=== PATIENT | male | born 1990 | race Caucasian/White ===

== ENCOUNTER 2017-08-10 21:03 | Outpatient (CLI) | payer MEDICAID, OTHER | END 2017-08-11 06:45 | disposition home or self-care (01) | LOC: SLEEP 21:03 | PROVIDERS: ATTEND Nurse Practitioner | DX: G47.33 Obstructive sleep apnea (adult) (pediatric) (principal); G47.10 Hypersomnia, unspecified; R06.83 Snoring | CPT/HCPCS: 95810 ==

== ENCOUNTER 2017-10-20 13:08 | Outpatient (RCR) | payer OTHER ==
[2017-10-20 13:39] LABS: SEMEN VOLUME 0.8 ML (1.5-5.0)
== END 2017-11-04 | disposition home or self-care (01) ==
LOC: LAB 13:08
PROVIDERS: ATTEND Nurse Practitioner
DX: Z92.21 Personal history of antineoplastic chemotherapy (principal)
CPT/HCPCS: 89320

== ENCOUNTER 2020-02-22 19:54 | Emergency (ER) | payer OTHER ==
[~2020-02-22] VITALS: Ht 167.7 cm; Wt 83.9 kg
[2020-02-22] MEDS ORDERED: KETAMINE/NaCl 50 MG/5 ML SYRINGE (ED ONLY) ONE (20:01)
[2020-02-22] MEDS ORDERED: HYDROmorphone 2 MG/ML VIAL (DILAUDID) ONE (20:01)
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
[2020-02-22 20:13] LABS: HEMOGLOBIN 14.6 g/dL (13.3-17.7); MEAN PLATELET VOLUME 9.9 fL (9.0-12.2); WHITE BLOOD COUNT 14.3 10^3/uL (4.3-11.0)
[2020-02-22] MEDS ORDERED: NS 100 ML (IVPB) BAG IV ONE (20:15)
[2020-02-22] MEDS ORDERED: IOHEXOL 350 MG/ML 100 ML (OMNIPAQUE 350) VIAL IV ONE (20:15)
[2020-02-22] MEDS ORDERED: HYDROmorphone 2 MG/ML VIAL (DILAUDID) IV ONE ×3 (20:15→22:45)
[2020-02-22] MEDS ORDERED: HOLD METFORMIN - RECEIVED CONTRAST 20 ML VIAL IV SCH (20:15)
[2020-02-22] MEDS ORDERED: KETAMINE/NaCl 50 MG/5 ML SYRINGE (ED ONLY) IV ONE ×2 (20:15→20:30)
[2020-02-22 20:29] LABS: CHLORIDE 105 MMOL/L (98-107); POTASSIUM 3.1 MMOL/L (3.6-5.0); SODIUM 136 MMOL/L (135-145)
[2020-02-22 20:30] LABS: CALCIUM 8.9 MG/DL (8.5-10.1)
[2020-02-22 20:32] LABS: GLUCOSE 105 MG/DL (70-105); TOTAL PROTEIN 6.9 GM/DL (6.4-8.2)
[2020-02-22 20:33] LABS: BILIRUBIN,TOTAL 0.4 MG/DL (0.1-1.0); CARBON DIOXIDE 20 MMOL/L (21-32); PROTHROMBIN TIME PATIENT 13.1 SEC (12.2-14.7)
[2020-02-22 20:35] LABS: ALKALINE PHOSPHATASE 44 U/L (40-136); CREATININE SERUM 1.15 MG/DL (0.60-1.30); GFR ESTIMATED > 60
[2020-02-22 20:37] LABS: BILIRUBIN,DIRECT 0.2 MG/DL (0.0-0.3); BILIRUBIN,INDIRECT 0.2 MG/DL; BUN/CREATININE RATIO 14
[2020-02-22 20:38] LABS: ALANINE AMINOTRANSFERASE 79 U/L (0-55)
--- NOTE | 2020-02-22 21:10 | NUR ---
PT STATES HE TAKES OTC SUPPLEMENTS, TESTOSTERONE, AND A BABY ASA. BABY ASA NOT PRESCRIBED HE STATES, "I GAVE BLOOD ONE TIME AND MY BLOOD WAS SUPER THICK SO NOW I TAKE A BABY ASPIRIN DAILY".
--- NOTE | 2020-02-22 21:11 | NUR ---
ETCO2 35.
--- NOTE | 2020-02-22 21:15 | NUR ---
1L NS STARTED BY EMS COMPLETE AT THIS TIME. NO FURTHER ORDERS FOR IVF PER Yvette HOPE, CARLITOS.
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
[2020-02-22] MEDS ORDERED: HYDROmorphone 2 MG/ML VIAL (DILAUDID) IVP ONE (22:00)
--- NOTE | 2020-02-22 22:05 | NUR ---
[facility] APPLIED OWN HARE TRACTION SPLINT NONE AVAILABLE IN ER.
[2020-02-22 22:12] VITALS: BP 128/87
--- NOTE | 2020-02-22 22:45 | NUR ---
PT FATHER HELGA UPDATED ON PT CONDITION AND TRANSFER ER.
== END 2020-02-22 22:12 | disposition short-term general hospital (02) ==
LOC: EDUNIT# 19:54 → ER 19:55
DX: S72.491A Other fracture of lower end of right femur, initial encounter for closed fracture (principal); R40.2410 Glasgow coma scale score 13-15, unspecified time; Z88.5 Allergy status to narcotic agent; V89.2XXA Person injured in unspecified motor-vehicle accident, traffic, initial encounter
CPT/HCPCS: 70450; 71045; 71260; 72125; 73552; 73590; 74177; 80048; 80076; 85027; 85610; 93041; 94760; 99291; 99292; G0390; G0480; 36415; 80320; 96374; 96375; 96376

== ENCOUNTER 2020-12-16 08:59 | Emergency (ER) | payer OTHER ==
[~2020-12-16] VITALS: Ht 157 cm; Wt 74.8 kg
--- OUTSIDE RECORDS SUMMARY | 2020-12-16 09:04 | XMS REPORT | Clinical Summary ---
Author Author [facility] Organization [facility] Address Unknown Phone Unavailable Care Team Providers Care Grinding Supervisor Name Role Phone Israel Moses MD PCP Silvia Recio MD Unavailable Kendy Solis MD Unavailable Source Comments Some departments are not documenting in the electronic medical record. If you d o not see the information that you expected, contact Release of Information in [facility] Information Management department at [phone] for further assistan ce in locating additional records.[facility] Allergies Not on File Medications Not on file Active Problems Problem Noted Date Closed fracture of unspecified part of femur 009 Social History Date Tobacco Use Types Packs/Day Years Used Never Assessed Sex Assigned at Date Recorded Not on file Last Filed Vital Signs Not on file Plan of Treatment Health Maintenance Due Date Last Done Comments HIV SCREENING 05/15/2006 DTAP/TDAP VACCINES (1 - 05/15/2009 Tdap) HEPATITIS C SCREENING 05/15/2009 PHYSICAL (COMPREHENSIVE) 05/15/2009 EXAM INFLUENZA VACCINE 10/05/2020 Results Not on filefrom Last 3 Months
--- NOTE | 2020-12-16 09:22 | ED Upper Extremity ---
General Chief Complaint: Upper Extremity Stated Complaint: L INDEX FINGER LAC/SMASHED Nursing Triage Note: PT ARRIVES TO ER WITH C/O L INDEX FINGER BEING SMASHED BY A METAL BEAM WHILE AT WORK AROUND 0850 THIS MORNING. PT RATES PAIN 5/10 Source: patient Exam Limitations: no limitations History of Present Illness Date Seen by Provider: Dec 16, 2020 Time Seen by Provider: 09:07 Initial Comments Patient is a 30-year-old male who presents to the emergency department today with a chief complaint of left index finger injury while moving some metal beams at work today. Patient states his finger got caught between the metal beams. Had immediate onset of pain in the finger. Bleeding noted. Small laceration, 1/2 cm noted over the proximal left index finger. Patient has intact range of motion with resistance. States his last tetanus shot was about 2 years ago. Is not a diabetic. Does smoke cigarettes. Is not Covid vaccinated, not interested in receiving the Covid vaccination. Complains of some pain to the tip of the index finger but otherwise it feels "numb". All other review of systems reviewed and negative except as stated. Onset: just prior to arrival Severity: mild Pain/Injury Location: left 2nd finger Method of Injury: direct blow Modifying Factors: Improves With Immobilization; Worse With Movement Allergies and Home Medications Allergies Coded Allergies: codeine (Unverified Allergy, Unknown, 12/16/20) Patient Home Medication List Home Medication List Reviewed: Yes Review of Systems Constitutional: see HPI EENTM: no symptoms reported Respiratory: no symptoms reported Cardiovascular: no symptoms reported Gastrointestinal: no symptoms reported Genitourinary: no symptoms reported Musculoskeletal: other (left index finger pain) Skin: other (laceration) All Other Systems Reviewed Negative Unless Noted: Yes Past Tbulgwk-Nyleco-Nfclma Hx Patient Social History Tobacco Use?: Yes Tobacco type used: Cigarettes Smoking Status: Current Everyday Smoker Substance use?: Yes Substance type: Marijuana Substance frequency: Rarely Alcohol Use?: Yes Alcohol type: Beer, Hard Liquor Alcohol Frequency: Daily Pt feels they are or have been: No Immunizations Up To Date Tetanus Booster (TDap): Less than 5yrs Past Medical History Surgeries: Yes (BMTs) Adenoidectomy, Orthopedic Respiratory: No Cardiac: No Neurological: No Genitourinary: No Gastrointestinal: No Musculoskeletal: No Endocrine: No HEENT: No Cancer: No Psychosocial: No Integumentary: No Physical Exam Vital Signs Vital Signs - First Documented 12/16/20 09:08 Temp 36.6 Pulse 76 Resp 18 B/P (MAP) 141/100 (114) Pulse Ox 98 O2 Delivery Room Air Capillary Refill : Less Than 3 Seconds Height, Weight, BMI Height: '" Weight: lbs. oz. kg; 30.00 BMI Method:Stated General Appearance: WD/WN, no apparent distress Neck: normal inspection Cardiovascular: regular rate, rhythm Respiratory: lungs clear, normal breath sounds, no respiratory distress, no accessory muscle use Shoulder: normal inspection, non-tender, no evidence of injury, normal ROM Elbow/Forearm: normal inspection, non-tender, no evidence of injury, normal ROM, Left Wrist: Yes normal inspection, Yes non-tender, Yes no evidence of injury, Yes normal ROM Hand: laceration (Laceration noted over the proximal phalanx on the dorsum of the left index finger. 1-1/2 cm. Minimal active bleeding. Patient has good active range of motion to the left finger with flexion and extension. He can flex and extend against resistance as well.) Neurologic/Psychiatric: alert, normal mood/affect, oriented x 3 Skin: normal color, warm/dry, other (laceration as above) Procedures/Interventions Wound Location: Upper Extremities Other Wound Location left index finger Wound Length (cm): 2 Wound's Depth, Shape: superficial Wound Explored: clean Irrigated w/ Saline (ccs): 150 Anesthesia: 1% Lidocaine Volume Anesthetic (ccs): 4 Suture: Ethlion Suture Size: 4-0 Number of Sutures: 4 Layer Closure?: 1 Sterile Dressing Applied?: Yes Progress Digital Block with 4cc 1% plaine lidocaine Progress/Results/Core Measures Results/Orders My Orders Orders - MUSTAPHA MONAHAN MD Hand, Left, 3 Views (12/16/20 09:04) Lidocaine 1% Inj 20 Ml (Xylocaine 1% Inj (12/16/20 09:30) Naproxen Tablet (Naprosyn Tablet) (12/16/20 10:00) Medications Given in ED Current Medications Medications Dose Ordered Sig/Damian Route Start Time Stop Time Status Last Admin Dose Admin Lidocaine HCl 20 ml ONCE ONCE INJ 12/16/20 09:30 12/16/20 09:31 DC 12/16/20 10:01 20 ML Naproxen 500 mg ONCE ONCE PO 12/16/20 10:00 12/16/20 10:01 DC 12/16/20 10:00 500 MG Vital Signs/I&O 12/16/20 09:08 Temp 36.6 Pulse 76 Resp 18 B/P (MAP) 141/100 (114) Pulse Ox 98 O2 Delivery Room Air Blood Pressure Mean: 114 Progress Progress Note : Time: 10:48 Progress Note Patient tolerated suturing well. 4 sutures of 4-0 Ethilon placed with good hemostasis. Expiration of the wound showed no obvious extensor tendon injury. Patient was placed in a metal finger splint. Wrapped in place. Distal neurovascularly intact. Precautions given. Sutures out in 10 days. Follow-up with occupational medicine. Departure Impression Primary Impression: Laceration of left index finger Qualified Codes: S61.211A - Laceration without foreign body of left index finger without damage to nail, initial encounter Disposition: HOME, SELF-CARE Condition: Stable Departure-Patient Inst. Decision time for Depature: 09:21 Referrals: NO,LOCAL PHYSICIAN (PCP/Family) Primary Care Physician Patient Instructions: Laceration Repair With Stitches ED Add. Discharge Instructions: Keep the wound clean dry and covered while at work. Wash twice a day with soap and water. Apply a little triple antibiotic ointment/Neosporin to the suture line twice a day for 2 to 3 days. You can then leave the sutures open to air while you are not at work. Stitches will need to come out in 10 days. Come back to the emergency room for any increased swelling of the finger, increasing redness, drainage of pus or other signs of infection. [id number] ibuprofen, 3 tablets which is 600 mg every 6 hours with food as needed for pain. Scripts No Active Prescriptions or Reported Meds MUSTAPHA MONAHAN MD Dec 16, 2020 09:22
[2020-12-16] MEDS ORDERED: LIDOCAINE 1% INJ 20 ML 20 ML VIAL INJ ONE (09:30)
--- NOTE | 2020-12-16 09:44 | Diagnostic Imaging Report ---
Indication: Smashed index finger. Pain. Examination: Left hand 12/16/2020 Findings: 3 views of the hand. There is a lucency throughout the volar aspect of the 2nd digit with surrounding soft tissue swelling. Lucencies could represent subcutaneous air, correlate for a puncture wound. There are no radiopaque foreign bodies. No fractures or dislocations. A ring overlies the proximal 4th phalanx obscuring its evaluation. Impression: 1. Soft tissue abnormalities as described about the index finger with no fractures identified. Dictated by: Dictated on workstation # [id number]
[2020-12-16] MEDS ORDERED: NAPROXEN 250 MG (NAPROSYN) TABLET PO ONE (10:00)
[2020-12-16 11:22] VITALS: BP 140/90
== END 2020-12-16 11:20 | disposition home or self-care (01) ==
LOC: EDUNIT# 08:59 → ER 09:01
DX: S61.211A Laceration without foreign body of left index finger without damage to nail, initial encounter (principal); F17.210 Nicotine dependence, cigarettes, uncomplicated; W23.0XXA Caught, crushed, jammed, or pinched between moving objects, initial encounter; Y92.59 Other trade areas as the place of occurrence of the external cause; Y99.0 Civilian activity done for income or pay
CPT/HCPCS: 12032; 73130

== ENCOUNTER 2020-12-26 09:25 | Emergency (ER) | payer OTHER ==
[~2020-12-26] VITALS: Ht 160 cm; Wt 73.4 kg
[2020-12-26 09:42] VITALS: BP 133/82
== END 2020-12-26 09:40 | disposition home or self-care (01) ==
LOC: EDUNIT# 09:25 → ER 09:29
DX: Z48.02 Encounter for removal of sutures (principal)

== ENCOUNTER 2021-06-07 13:56 | Emergency (ER) | payer SELFPAY ==
[~2021-06-07] VITALS: Ht 160 cm; Wt 79.3 kg
[2021-06-07 14:10] VITALS: BP 151/91
--- NOTE | 2021-06-07 14:32 | ED General ---
General Chief Complaint: Bite-Animal/Human/Insect Stated Complaint: R HAND DOG BITE Nursing Triage Note: pt ambulatory to ft[facility]. pt states he was bitten by a dog right before he came to ER. pt has 3 bite kim to the right hand. pt states he does not want to make a report with pd (AKIKO MOSLEY STUDENT) History of Present Illness Date Seen by Provider: Jun 07, 2021 Time Seen by Provider: 14:20 Initial Comments Pt is a 31yo male with no significant PMH who presents today due to a dog bite on the R had. Bite occurred about 15 mins prior to arrival in ED. He has 3 puncture kim on his R hand that he states are pretty painful. He is confident that the dog has its vaccinations and that his last tetanus shot was 3 years ago. He has not taken anything for pain. (AKIKO MOSLEY STUDENT) Allergies and Home Medications Allergies Coded Allergies: codeine (Unverified Allergy, Unknown, 12/16/20) Patient Home Medication List Home Medication List Reviewed: Yes (DAVIN GAONA MD) Amoxicillin/Potassium Clav (Amox Tr-K Clv 875-125 mg Tab) 1 Each Tablet, 1 EACH PO BID Prescribed by: DAVIN SKINNER on 06/07/21 1528 Review of Systems Review of Systems Constitutional: No chills, No fever Respiratory: No cough, No short of breath Cardiovascular: No chest pain, No edema Gastrointestinal: No abdominal pain, No nausea, No vomiting Genitourinary: No dysuria, No hematuria Skin: lesions; No rash (AKIKO MOSLEY) Past Juesazy-Pbkgjh-Tuxngu Hx Immunizations Up To Date Tetanus Booster (TDap): Less than 5yrs (AKIKO MOSLEY) Past Medical History Surgeries: Yes (BMTs) Adenoidectomy, Orthopedic Respiratory: No Cardiac: No Neurological: No Genitourinary: No Gastrointestinal: No Musculoskeletal: No Endocrine: No HEENT: No Cancer: No Psychosocial: No Integumentary: No (AKIKO MOSLEY) Physical Exam Vital Signs Vital Signs - First Documented 06/07/21 14:10 Temp 36.9 Pulse 107 Resp 18 B/P (MAP) 151/91 (111) Pulse Ox 98 (DAVIN GAONA MD) Vital Signs Capillary Refill : (AKIKO MOSLEY STUDENT) Height, Weight, BMI Height: '" Weight: lbs. oz. kg; 30.00 BMI Method:Stated General Appearance: WD/WN, Mild Distress Respiratory: Chest Non Tender, Lungs Clear, Normal Breath Sounds Cardiovascular: Regular Rate, Rhythm, No Murmur, Normal Peripheral Pulses Gastrointestinal: Normal Bowel Sounds, Non Tender, Soft Extremity: No Calf Tenderness, No Pedal Edema, Other (3 Puncture wounds on the R hand around the hypothenar area. There is not active bleeding. Puncture wounds are well cirumscribed. There is swelling of the area. Pt states there is some numbness at the tip of the thumb) Neurologic/Psychiatric: Alert, Oriented x3, Normal Mood/Affect Skin: Normal Color, Warm/Dry (AKIKO MOSLEY) Procedures/Interventions Suture Size: 4-0 (AKIKO MOSLEY) Progress/Results/Core Measures Suspected Sepsis SIRS Temperature: Pulse: 107 Respiratory Rate: 18 Blood Pressure 151 /91 Mean: 111 (AKIKO MOSLEY) Results/Orders My Orders Orders - DAVIN GAONA MD Amoxicillin/Clavulanate Tablet (Augmenti (06/07/21 14:51) Ibuprofen Tablet (Motrin Tablet) (06/07/21 15:00) Acetaminophen Tablet (Tylenol Tablet) (06/07/21 15:00) Hand, Right, 3 Views (06/07/21 14:51) (DAVIN GAONA MD) Medications Given in ED Current Medications Medications Dose Ordered Sig/Damian Route Start Time Stop Time Status Last Admin Dose Admin Acetaminophen 1,000 mg ONCE ONCE PO 06/07/21 15:00 06/07/21 15:01 DC 06/07/21 15:21 1,000 MG Ibuprofen 600 mg ONCE ONCE PO 06/07/21 15:00 06/07/21 15:01 DC 06/07/21 15:21 600 MG (DAVIN GAONA MD) Vital Signs/I&O 06/07/21 14:10 Temp 36.9 Pulse 107 Resp 18 B/P (MAP) 151/91 (111) Pulse Ox 98 (DAVIN GAONA MD) Vital Signs/I&O Capillary Refill : (AKIKO MOSLEY MED STUDENT) Blood Pressure Mean: 111 Progress Note : Progress Note Patient reported being up-to-date on his tetanus immunization and reports he knows the dog was immunized. We had him scrub his wounds with chlorhexidine and running water in the sink. He was given Tylenol, ibuprofen, and Augmentin in the ER. Return precautions were discussed. X-ray revealed no fracture to the hand. (DAVIN GAONA MD) Diagnostic Imaging Diagonstic Imaging: Xray Plain Films/CT/US/NM/MRI: hand Comments X-rays reviewed by me and report reviewed. See report below: NAME: HELGA ROPER JR [facility] REC#: [id number] PT STATUS: REG ER : 1990 PHYSICIAN: DAVIN GAONA MD ADMIT DATE: 06/07/21/ER Signed Date of Exam:06/07/21 HAND, RIGHT, 3 VIEWS INDICATION: Dogbite to the thumb. Pain. Unable to remove ring. EXAMINATION: Right hand, 06/07/2021. FINDINGS: 3 views of the hand. There is a large ring overlying the proximal 3rd phalanx obscuring evaluation of the underlying structures. No fractures or dislocations appreciated in the visualized osseous structures. There are no radiopaque foreign bodies. IMPRESSION: No acute process within the visualized osseous structures with limitations as above. Dictated by: Dictated on workstation # [id number] Dict: 06/07/21 1504 Trans: 06/07/21 1530 [facility] [id number] Interpreted by: PADMINI ANDERSEN MD Electronically signed by: PADMINI ANDERSEN MD 06/07/21 1530 (DAVIN GAONA MD) Departure Impression Primary Impression: Dog bite Qualified Codes: W54.0XXA - Bitten by dog, initial encounter Additional Impressions: Contusion, hand Qualified Codes: S60.221A - Contusion of right hand, initial encounter Puncture wound Disposition: 01 HOME, SELF-CARE Condition: Stable Departure-Patient Inst. Decision time for Depature: 15:25 (DAVIN GAONA MD) Referrals: NO,LOCAL PHYSICIAN (PCP/Family) Primary Care Physician Patient Instructions: Animal Bites ED Add. Discharge Instructions: Complete the entire course of antibiotics as prescribed. Try to take your next dose late tonight. If you are not able to fill it until tomorrow, please take your first dose as soon as possible tomorrow morning. Take Augmentin with food as it may cause upset stomach if taken on an empty stomach. Monitor the wounds for worsening signs of infection such as spreading redness, increasing swelling, puslike drainage, or fever. Return to care promptly if you suspect any possible infection. You may take ibuprofen up to 600 mg every 6 hours as needed and/or Tylenol (acetaminophen) up to 1000 mg every 6 hours as needed for pain. You may also ice in 20-minute intervals and elevate to help with pain and swelling. Call with questions or concerns. Return to care if you have any other worsening condition. All discharge instructions reviewed with patient and/or family. Voiced understanding. Scripts Amoxicillin/Potassium Clav (Amox Tr-K Clv 875-125 mg Tab) 1 Each Tablet 1 EACH PO BID, #14 TAB Prov: DAVIN GAONA MD 06/07/21 Medical Student Attestation and Attending Note: I have personally interviewed and examined this patient along with Akiko Mosley, MS 4. I have reviewed student documentation including history, physical, and assessments. I agree with the documentation except where otherwise noted. Exam: General: Alert, oriented, no acute distress, well developed HEENT: Normocephalic and atraumatic Extremities: Right hand demonstrates 3 puncture-like lacerations to the thenar region with swelling of the thenar eminence. This area is rather tender. Distal exam unremarkable. Neuropsych: Alert, oriented, no focal deficits Skin: Warm and dry without rashes (DAVIN GANOA MD) AKIKO MOSLEY MED STUDENT Jun 07, 2021 14:32 DAVIN GAONA MD Jun 07, 2021 15:28
[2021-06-07] MEDS ORDERED: AUGMENTIN 875 MG TAB (AMOXICILLIN/CLAVULANATE) PO STA (14:51)
[2021-06-07] MEDS ORDERED: ACETAMINOPHEN 500 MG TAB (TYLENOL) PO ONE (15:00)
[2021-06-07] MEDS ORDERED: IBUPROFEN TABLET 200 MG TAB PO ONE (15:00)
--- NOTE | 2021-06-07 15:14 | Diagnostic Imaging Report ---
INDICATION: Dogbite to the thumb. Pain. Unable to remove ring. EXAMINATION: Right hand, 06/07/2021. FINDINGS: 3 views of the hand. There is a large ring overlying the proximal 3rd phalanx obscuring evaluation of the underlying structures. No fractures or dislocations appreciated in the visualized osseous structures. There are no radiopaque foreign bodies. IMPRESSION: No acute process within the visualized osseous structures with limitations as above. Dictated by: Dictated on workstation # [id number]
[2021-06-07] MEDS ORDERED: AMOX1TAB12 PO (15:28)
== END 2021-06-07 15:35 | disposition home or self-care (01) ==
LOC: EDUNIT# 13:56 → ER 13:57
DX: S61.431A Puncture wound without foreign body of right hand, initial encounter (principal); W54.0XXA Bitten by dog, initial encounter
CPT/HCPCS: 73130; 99283